=== PATIENT | female | born 1960 | race Caucasian/White ===

== ENCOUNTER → 2020-03-08 | Outpatient (CLI) | payer OTHER ==
--- NOTE | 2020-03-08 16:28 | RAD ---
EXAM DESCRIPTION: Chest,2 Views CLINICAL HISTORY: CHEST PAIN COMPARISON: None Available. TECHNIQUE: Two-view radiograph of the chest FINDINGS: Cardiac silhouette shows normal heart size. Pulmonary vascularity is within normal limits. Lungs show no confluent infiltrates. No pleural effusion. No pneumothorax. No acute osseous abnormality. IMPRESSION: No acute cardiopulmonary process. Electronically signed by: Emerson Amor MD 03/08/2020 4:26 PM CDT
== END ==
LOC: RAD 15:35
PROVIDERS: ATTEND Nurse Practitioner Family
DX: R07.9 Chest pain, unspecified (principal)

== ENCOUNTER → 2020-04-06 | Outpatient (CLI) | payer OTHER ==
--- NOTE | 2020-04-06 15:21 | US ---
EXAM DESCRIPTION: Carotid Duplex: ULTRASOUND. CLINICAL HISTORY: 59 years Female OTHER SPECIFIED SYMPTOMS AND SIGNS INVOLVING THE CIRCULATORY COMPARISON: None. TECHNIQUE: Transcutaneous scanning utilizing sainz-scale and Doppler modes to evaluate the bilateral carotid systems and vertebral arteries. Percentage of diameter of stenosis or no stenosis recorded will be based upon NASCET criteria. FINDINGS: Peak systolic/end diastolic (CM-Sec) CCA Right 60/14 Left 76/32. ICA Right proximal 85/18, mid 105/16. Left proximal 96/38, mid 96/42. Vertebral Right 76/29 Left 72/27. ECA (PS Only) Right 90 left 287. ICA/CCA peak systolic ratio: Right 1.7 Left 1.3 ICA/CCA end diastolic ratio: Right 1.2 Left 1.3 Vertebral arteries: antegrade flow. Comments: Moderate atherosclerotic calcification on the left. Area and diameter stenoses in the right carotid are 25% or less. Area and diameter stenosis in the left carotid are less than 50%. Spectral broadening in the proximal left ICA. IMPRESSION: 1. Doppler evaluation of the bilateral carotid systems and vertebral arteries shows no hemodynamically significant stenoses (less than 70%). 2. Moderate amount of plaque in the carotid arteries on the left. Bilateral vertebral arteries showed antegrade-cephalad flow. Electronically signed by: Edwar Gibbs MD 04/06/2020 3:19 PM CDT
== END ==
LOC: ECHO 10:01
PROVIDERS: ATTEND Family Medicine
DX: I51.7 Cardiomegaly (principal); I51.89 Other ill-defined heart diseases; I65.22 Occlusion and stenosis of left carotid artery; R09.89 Other specified symptoms and signs involving the circulatory and respiratory systems

== ENCOUNTER → 2020-11-08 | Outpatient (CLI) | payer SELFPAY ==
--- NOTE | 2020-11-09 10:27 | US ---
US THYROID CLINICAL STATEMENT:59 years Female E03.9. Hyperthyroidism. Palpable left neck nodule. COMPARISON: Ultrasound carotid duplex March 2020. TECHNIQUE: Transcutaneous scanning, grayscale and Doppler modes. FINDINGS: Size right thyroid lobe: 3.3 x 1.0 x 1.0 cm Size left thyroid lobe: 3.1 x 0.9 x 1.0 cm Size isthmus: 0.24 cm Estimated total number of nodules greater than or equal to 1 cm: None.. The gland is heterogeneous. No solid nodules. Small cysts or cystlike objects. No fluid collection or large calcifications. Circumscribed mass with hypoechoic margins and echogenic eccentric region in the left lateral soft tissues which is palpable. Dimensions are 11.2 x 3.1 x 8.5 mm minimal vascularity. Most likely a lymph node. IMPRESSION: 1. No solid nodules, no large cysts, no fluid collection, no large calcifications in the thyroid gland. 2. 1.1 cm lymph node in the left lateral neck which is palpable. *ACR TI-RADS 2017 Recommendations for imaging follow-up of nodules (baseline study): TR1: No FNA or follow up TR2: No FNA or follow up TR3: FNA if >/= 2.5 cm, follow up if 1.5 - 2.4 cm in 1, 3, and 5 years TR4: FNA if >/= 1.5 cm, follow up if 1.0 - 1.4 cm in 1, 2, 3, and 5 years TR5: FNA if >/= 1.0 cm, follow up if 0.5 - 0.9 cm every year for 5 years ACR TI-RADS recommends that no more than two nodules with the highest ACR TI-RADS total point should be biopsied and no more than four nodules should be followed. These recommendations do not apply to patients with increased risk for thyroid cancer or patients with symptomatic thyroid disease. Electronically signed by: Edwar Gibbs MD 11/09/2020 10:26 AM [facility]
== END ==
LOC: US 07:51
PROVIDERS: ATTEND Family Medicine
DX: E03.9 Hypothyroidism, unspecified (principal)